=== PATIENT | female | born 1950 | race Caucasian/White ===

== ENCOUNTER → 2017-01-29 | Outpatient (CLI) | payer BC, MEDICARE ==
[2014-01-25 08:31] VITALS: BP 136/66
[~2017-01-29] MED LIST: ASPI-482 PO; CA C1TAB28 PO; CELE200C PO; CINN500C2 PO; ESTR42.53 VG; MULT-18 PO; OMEG500C3 PO
--- NOTE | 2017-01-29 11:23 | RAD ---
INDICATION: LEFT KNEE PAIN X 4 MTHS, NO KNOWN INJURY COMPARISON: None. IMPRESSION: 3 views left knee obtained without definite fracture. Degenerative changes are seen with medial joint space narrowing and osteophyte formation. Apparent swelling of soft tissues at medial knee.
== END | disposition home or self-care (01) ==
LOC: DXRADRC 11:06
PROVIDERS: ATTEND Physician Assistant Medical
DX: M25.562 Pain in left knee (principal); M25.462 Effusion, left knee
CPT/HCPCS: 73562

== ENCOUNTER → 2018-05-27 | Outpatient (CLI) | payer MEDICARE ==
[2014-01-25 08:31] VITALS: BP 136/66
--- NOTE | 2018-05-27 16:45 | RAD ---
Bone densitometry 05/27/2018 11:16 AM Indication: post menopausal Comparison Study: Bone densitometry March 16, 2015. Discussion: Bone Densitometry was performed with dual photon absorption of the lumbar spine and proximal right femur. Lumbar Spine: Bone average density is 0.972g/cm2 for L1-L4. T-Score is -1.7. (Prior T score -1.6) Right femoral neck: Bone average density is 0.787g/cm2. T score is -1.8 (prior T score -1.8) IMPRESSION: Osteopenia with similar T score is to exam from 2015 Note: Definitions established by the World [employer] Organization: Normal: T-score is -1.0 or above. Osteopenia: T-score is between -1.0 and -2.5. Osteoporosis: T-score is -2.5 or below. Electronically signed by: Rigo Chandra MD (05/27/2018 4:42 PM) [id number]
== END | disposition home or self-care (01) ==
LOC: DXRAD 10:06
PROVIDERS: ATTEND Physician Assistant Medical
DX: Z13.820 Encounter for screening for osteoporosis (principal); M85.88 Other specified disorders of bone density and structure, other site
CPT/HCPCS: 77080